=== PATIENT | female | born 1980 | race Caucasian/White ===

== ENCOUNTER 2019-05-18 11:48 | Emergency (ER) | payer OTHER, MEDICARE ==
[~2019-05-18] VITALS: Ht 162.6 cm; Wt 68.0 kg
[2019-05-18] MEDS ORDERED: KETOROLAC 15 MG/ML VIAL. IM ONE (12:30)
[2019-05-18] MEDS ORDERED: ORPHENADRINE CITRATE 60 MG/2 ML VIAL. IM ONE (12:30)
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
[2019-05-18] MEDS ORDERED: MELO7.5T29 PO (13:08)
[2019-05-18] MEDS ORDERED: ORPH-16 PO (13:08)
[2019-05-18 13:15] VITALS: BP 120/81
== END 2019-05-18 13:16 | disposition home or self-care (01) ==
LOC: ER 11:48
DX: M54.32 Sciatica, left side (principal); M19.90 Unspecified osteoarthritis, unspecified site; F17.210 Nicotine dependence, cigarettes, uncomplicated; Z98.51 Tubal ligation status; Z88.0 Allergy status to penicillin; Z88.1 Allergy status to other antibiotic agents
CPT/HCPCS: 73502; 96372; 99284; J1885; J2360

== ENCOUNTER → 2019-08-22 | Outpatient (CLI) | payer MEDICARE, OTHER ==
[~2019-08-22] MED LIST: MELO7.5T29 PO; ORPH-16 PO
--- NOTE | 2019-08-22 16:16 | RAD ---
AP view of the abdomen Clinical indications: Abdominal pain. FINDINGS: Moderate fecal retention is seen throughout the colon and mild fecal retention is seen within the rectosigmoid region. No significant dilatation of the colon is evident. No small bowel dilatation is evident. Mild levoscoliosis is seen. The osseous structures are intact. Calcified phleboliths are again seen within both sides of the anatomic pelvis which were seen on a previous AP view pelvis study dated May 18, 2019. IMPRESSION: Moderate fecal retention. Electronically signed by: Christ Barry MD (08/22/2019 4:13 PM) [facility] [place]
--- NOTE | 2019-08-22 16:52 | RAD ---
Examination: Ultrasound pelvis HISTORY: History of cystocele, pelvic pain COMPARISON: None available FINDINGS: The uterus measures 7.1 x 4.2 x 5.0 cm. The endometrium measures 9 mm in thickness. Right ovary measures 1.8 x 2.0 x 2.2 cm. Left ovary measures 3.2 x 2.3 x 3.5 cm. Blood flow in the right and left ovaries. IMPRESSION: Unremarkable exam. Electronically signed by: Rickie Balderas MD (08/22/2019 4:49 PM) [id number]
== END | disposition home or self-care (01) ==
LOC: US 15:14
PROVIDERS: ATTEND Specialist
DX: K59.09 Other constipation (principal); N81.10 Cystocele, unspecified; I87.8 Other specified disorders of veins; R10.2 Pelvic and perineal pain
CPT/HCPCS: 74018; 76830; 76856

== ENCOUNTER 2020-03-20 19:38 | Emergency (ER) | payer MEDICARE, OTHER ==
[~2020-03-20] VITALS: Ht 162.6 cm; Wt 75.5 kg
[2020-03-20] MEDS ORDERED: CLINDAMYCIN HCL 150 MG CAPSULE PO ONE (21:00)
[2020-03-20] MEDS ORDERED: DOXYCYCLINE HYCLATE 100 MG TABLET PO ONE (21:00)
[2020-03-20] MEDS ORDERED: DOXY100T PO (21:28)
[2020-03-20] MEDS ORDERED: CLIN300C8 PO (21:28)
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
[2020-03-20 21:30] VITALS: BP 122/85
== END 2020-03-20 21:30 | disposition home or self-care (01) ==
LOC: ER 19:38
DX: S51.811A Laceration without foreign body of right forearm, initial encounter (principal); M19.90 Unspecified osteoarthritis, unspecified site; F17.210 Nicotine dependence, cigarettes, uncomplicated; Z88.0 Allergy status to penicillin; Z88.1 Allergy status to other antibiotic agents; Y04.1XXA Assault by human bite, initial encounter; Y93.89 Activity, other specified; Y92.89 Other specified places as the place of occurrence of the external cause; Y99.8 Other external cause status
CPT/HCPCS: 99283

== ENCOUNTER 2020-05-18 18:54 | Emergency (ER) | payer MEDICARE, OTHER ==
[~2020-05-18] VITALS: Ht 162.6 cm; Wt 77.5 kg
[~2020-05-18 18:54] MED LIST changes: +CLIN300C8 PO; +DOXY100T PO
[2020-05-18 19:06] VITALS: BP 150/98
[2020-05-18] MEDS ORDERED: IBUPROFEN 600 MG TABLET. PO ONE (19:15)
[2020-05-18] MEDS ORDERED: HYDROcodone/APAP 7.5/325MG 1 TAB TABLET PO ONE (20:30)
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
[2020-05-18] MEDS ORDERED: IBUP-1673 PO (21:08)
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
== END 2020-05-18 21:20 | disposition home or self-care (01) ==
LOC: ER 18:54
DX: M25.532 Pain in left wrist (principal); M25.521 Pain in right elbow; M54.5 Low back pain; R91.1 Solitary pulmonary nodule; F41.9 Anxiety disorder, unspecified; F20.9 Schizophrenia, unspecified; M19.90 Unspecified osteoarthritis, unspecified site; F17.210 Nicotine dependence, cigarettes, uncomplicated; Z98.51 Tubal ligation status; Z88.0 Allergy status to penicillin; Z88.1 Allergy status to other antibiotic agents
CPT/HCPCS: 72128; 72131; 73110; 81025; 99285

== ENCOUNTER 2020-10-06 16:20 | Emergency (ER) | payer MEDICARE, OTHER ==
[~2020-10-06] VITALS: Ht 162.6 cm; Wt 77.5 kg
[~2020-10-06 16:20] MED LIST changes: -CLIN300C8 PO; +CLIN300C9 PO; +IBUP-1673 PO
--- NOTE | 2020-10-06 17:42 | PHYS DOC ---
Past History Past Medical History: Anxiety, Arthritis, Depression, Schizophrenia, Other Additional Past Medical Histor: lupus (ONUR MONTOYA APRN) Past Surgical History: Cancer Surgery, Tubal ligation, Other Additional Past Surgical Histo: breast CA 2013 (ONUR MONTOYA APRN) Smoking: Cigarettes Alcohol Use: None Drug Use: None (ONUR MONTOYA APRN) General Adult EDM: Chief Complaint: POST-OP PROBLEM HPI: HPI: Patient is a 40-year-old female who presents with postop bleeding on right elbow . Patient states she had surgery 14 days ago. Patient states that today she hit her elbow on her car and it started bleeding. Patient states that yesterday she was having a lot of pain to the area and noticed a yellow discharge coming from wound. She contacted her hand surgeon who told her to come to the emergency room. Patient has a follow-up appointment tomorrow with her surgeon. (ONUR MONTOYA APRN) Review of Systems: Review of Systems: Constitutional: Denies fever or chills Eyes: Denies change in visual acuity HENT: Denies nasal congestion or sore throat Respiratory: Denies cough or shortness of breath Cardiovascular: Denies chest pain or edema GI: Denies abdominal pain, nausea, vomiting, bloody stools or diarrhea : Denies dysuria Musculoskeletal: Denies back pain or joint pain Integument: Postop wound right elbow Neurologic: Denies headache, focal weakness or sensory changes Endocrine: Denies polyuria or polydipsia Lymphatic: Denies swollen glands Psychiatric: Denies depression or anxiety (ONUR MONTOYA APRN) Allergies: Allergies: Allergies Coded Allergies Type Severity Reaction Last Updated Verified Penicillins Allergy Unknown 05/18/19 Yes amoxicillin Allergy Unknown 05/18/19 Yes (ONUR MONTOYA APRN) Physical Exam: PE: Constitutional: Well developed, well nourished, no acute distress, non-toxic appearance. [] HENT: Normocephalic, atraumatic, bilateral external ears normal, oropharynx moist, no oral exudates, nose normal. [] Eyes: PERRLA, EOMI, conjunctiva normal, no discharge. [] Neck: Normal range of motion, no tenderness, supple, no stridor. [] Cardiovascular:Heart rate regular rhythm, no murmur [] Lungs & Thorax: Bilateral breath sounds clear to auscultation [] Abdomen: Bowel sounds normal, soft, no tenderness, no masses, no pulsatile masses. [] Skin: Wound to right elbow, warmth and redness to area Back: No tenderness, no CVA tenderness. [] Extremities: No tenderness, no cyanosis, no clubbing, ROM intact, no edema. [] Neurologic: Alert and oriented X 3, normal motor function, normal sensory function, no focal deficits noted. [] Psychologic: Affect normal, judgement normal, mood normal. [] (ONUR MONTOYA APRN) Current Patient Data: Vital Signs: Vital Signs Date Time Temp Pulse Resp B/P (MAP) Pulse Ox O2 Delivery O2 Flow Rate FiO2 10/06/20 16:26 98.0 53 16 128/84 (99) 96 Room Air (ONUR MONTOYA APRN) EKG: EKG: [] (ONUR MONTOYA APRN) Radiology/Procedures: Radiology/Procedures: [] (ONUR MONTOYA APRN) Heart Score: Risk Factors: Risk Factors: DM, Current or recent (<one month) smoker, HTN, HLP, family history of CAD, obesity. Risk Scores: Score 0 - 3: 2.5% MACE over next 6 weeks - Discharge Home Score 4 - 6: 20.3% MACE over next 6 weeks - Admit for Clinical Observation Score 7 - 10: 72.7% MACE over next 6 weeks - Early Invasive Strategies (ONUR MONTOYA APRN) Course & Med Decision Making: Course & Med Decision Making Pertinent Labs and Imaging studies reviewed. (See chart for details) []Patient is a 40-year-old female who presents with postop bleeding on right elbow. Patient states she had surgery 14 days ago. Patient states that today she hit her elbow on her car and it started bleeding. Patient states that yesterday she was having a lot of pain to the area and noticed a yellow discharge coming from wound. She contacted her hand surgeon who told her to come to the emergency room. Patient has a follow-up appointment tomorrow with her surgeon. Patient states that she contacted her hand surgeon after she hit her elbow and had bleeding. Surgeon asked her to be seen in the emergency room and to follow- up tomorrow morning. Starting patient on antibiotics and Steri-Strip area. Ibuprofen and Tylenol for pain and discomfort. (ONUR MONTOYA APRN) Dragon Disclaimer: Vikki Disclaimer: This electronic medical record was generated, in whole or in part, using a voice recognition dictation system. (ONUR MONTOYA APRN) Departure Departure: Impression: Primary Impression: Post-op bleeding Qualified Codes: L76.22 - Postprocedural hemorrhage of skin and subcutaneous tissue following other procedure Disposition: 01 DC HOME SELF CARE/HOMELESS Condition: GOOD Referrals: KENYON HERNANDEZ MD (PCP) Patient Instructions: Delayed Wound Closure, Skin Infections Additional Instructions: You are seen emergency room for postop bleeding from your elbow. I have started you on some antibiotics to treat infection. Please take antibiotics as prescribed. You can take ibuprofen and Tylenol at home for pain. Make sure you keep your appointment tomorrow to see your surgeon for follow-up. Return emergency room with worsening symptoms or concerns. EMERGENCY DEPARTMENT GENERAL DISCHARGE INSTRUCTIONS Thank you for coming to [facility] ([facility]) today and trusting us with you care. We trust that you had a positivie experience in our Emergency Department. If you wish to speak to the department management, you may call the director at [phone]. YOUR FOLLOW UP INSTRUCTIONS ARE FOLLOWS: 1. Do you have a private Doctor? If you do not have a private doctor, please ask for a resource list of physicians or clinics that may be able to assist you with follow up care. 2. The Emergency Physician has interpreted your x-rays. The X-Ray specialist will also review them. If there is a change in the findings, you will be notified in 48 hours when at all possible. 3. A lab test or culture has been done, your results will be reviewed and you will be notified if you need a change in treatment. ADDITIONAL INSTRUCTIONS AND INFORMATION: 1. Your care today has been supervised by a physician who is specially trained in emergency care. Many problems require more than one evaluation for a complete diagnosis and treatment. We recommend that you schedule your follow up appointment as recommended to ensure complete treatment of you illness or injury. If you are unable to obtain follow up care and continue to have a problem, or if your condition worsens, we recommend that you return to the ED. 2. We are not able to safely determine your condition over the phone nor are we able to give sound medical advice over the phone. For these safety reasons, if you call for medical advice we will ask you to come to the ED for further evaluation. 3. If you have any questions regarding these discharge instructions please call the ED at [phone]. SAFETY INFORMATION: In the interest of safety, wellness, and injury prevention; we encourage you to wear your sealbelt, if you smoke; quite smoking, and we encourage family to use a protective helmet for bicycling and other sporting events that present an increased risk for head injury. IF YOUR SYMPTOMS WORSEN OR NEW SYMPTOMS DEVELOP, OR YOU HAVE CONCERNS ABOUT YOUR CONDITION; OR IF YOUR CONDITION WORSENS WHILE YOU ARE WAITING FOR YOUR FOLLOW UP APPOINTMENT; EITHER CONTACT YOUR PRIMARY CARE DOCTOR, THE PHYSICIAN WHOSE NAME AND NUMBER YOU WERE GIVEN, OR RETURN TO THE ED IMMEDIATELY. Scripts Sulfamethoxazole/Trimethoprim (BACTRIM 400-80 MG TABLET) 1 Each Tablet 1 TAB PO BID for infection for 7 Days, #14 TAB 0 Refills Prov: ONUR MONTOYA APRN 10/06/20 Attending Signature Attending Signature I have reviewed the PA/BUTTON RIVETER's note and plan of care. I was available for consultation as needed during the patient's visit in the emergency department. I agree with the clinical impression, plan, and disposition. (PEDRO SLADE DO) ONUR MONTOYA APRN Oct 06, 2020 17:42 PEDRO SLADE DO Oct 07, 2020 07:59
[2020-10-06] MEDS ORDERED: SULF1TAB23 PO (17:47)
[2020-10-06 18:18] VITALS: BP 124/43
== END 2020-10-06 18:17 | disposition home or self-care (01) ==
LOC: ER 16:20
DX: L76.22 Postprocedural hemorrhage of skin and subcutaneous tissue following other procedure (principal); M19.90 Unspecified osteoarthritis, unspecified site; F20.9 Schizophrenia, unspecified; F41.9 Anxiety disorder, unspecified; F32.9 Major depressive disorder, single episode, unspecified; F17.210 Nicotine dependence, cigarettes, uncomplicated; Z88.0 Allergy status to penicillin; Z88.1 Allergy status to other antibiotic agents
CPT/HCPCS: 99283